=== PATIENT | female | born 1955 | race Caucasian/White ===

== ENCOUNTER → 2016-09-15 | Outpatient (CLI) | payer OTHER | END | disposition home or self-care (01) | LOC: GMAB 10:17 | PROVIDERS: ATTEND Family Medicine | DX: Z00.00 Encounter for general adult medical examination without abnormal findings (principal) ==

== ENCOUNTER 2017-07-02 23:44 | Emergency (ER) | payer OTHER, MEDICARE ==
[2017-07-02] MEDS ORDERED: IPRATROPIUM/ALBUTEROL 3 ML VIAL NEB ONE ×2 (23:47→23:50)
[2017-07-02] MEDS ORDERED: SODIUM CHLORIDE 0.9% 1000ML 1,000 ML IVS ONE (23:50)
[2017-07-03] MEDS ORDERED: FOLIC ACID INJ 5 MG/ML VIAL IV ONE (00:12)
--- NOTE | 2017-07-03 00:28 | ED.PDOC ---
History of Present Illness - General Chief Complaint: General Stated Complaint: ETOH INTOXICATED Time Seen by Provider: 07/02/17 23:49 Source: EMS notes reviewed, family Exam Limitations: clinical condition - History of Present Illness Initial Comments: the patient is a 61-year-old female being brought in by EMS secondary to altered mental status. She had been drinking all day with her . She consumes somewhere between 15 and 20 beers. She does drink fairly regularly. No history of any recent illness. She does take immunosuppressants for her psoriasis. She has moved all extremities and she's been here. She clenches her eyes tightly when he tried to examine them. She closes her mouth tightly when he tried to examine her mouth. She does not respond purposefully or appropriately to verbal commands. She has not thrown up. Vital signs have been stable since her arrival. She is satting 95% on room airand breathing 20-28 times per minute. Blood pressures have been within normal limits. She is afebrile. She has had no recentsigns or symptoms of illness according to her . No history of any strokes. Timing/Duration: 1 hour Severity: severe Improving Factors: nothing Worsening Factors: nothing Allergies/Adverse Reactions: Allergies Codeine Adverse Reaction (Verified 07/03/17 00:10) Other arrhythmia Home Medications: Ambulatory Orders Folic Acid 1 tab PO BID 10/08/12 Furosemide [Lasix] 40 mg PO TIERRA-OTH-DAY 10/08/12 Rosuvastatin Calcium [Crestor] 10 mg PO AM 10/08/12 Spironolactone 25 mg PO AM 10/08/12 Losartan Potassium 100 mg PO DAILY #0 03/31/13 Multiple Vitamin [Multi-Vitamin] 1 tab PO DAILY #0 03/31/13 Sulfasalazine 2 tab PO BID #0 03/31/13 Ciclesonide (Nasal) [Omnaris] 50 mcg NA DAILY PRN 02/09/16 Cyclobenzaprine HCl [Flexeril] 10 mg PO TID PRN 02/09/16 Methotrexate Tab 12.5 mg PO MOWE 02/09/16 Potassium Chloride [Potassium Chloride ER] 20 meq PO BIDFD 02/09/16 Venlafaxine HCl [Effexor Xr] 150 mg PO DAILY 02/09/16 Amoxicillin & Pot Clavulanate [Augmentin Tab] 875 mg PO BID #20 tab 07/03/17 predniSONE [Prednisone] 20 mg PO DAILY #3 tab 07/03/17 Review of Systems - Review of Systems Review of Systems: 07/03/17 00:28 the patient is unable to give review of systems secondary to her clinical condition. Information below is gathered from the for the time period Prior to this afternoon. Past Medical History (General) - Patient Medical History Hx Seizures: No Hx Stroke: No Hx Asthma: No Hx of COPD: Yes Hx Cardiac Disorders: Yes - elevated cholesterol Hx Congestive Heart Failure: No Hx Pacemaker: No Hx Hypertension: Yes Hx Diabetes: No Hx Cancer: - skin cancers removed Hx MRSA: No - Vaccination History Hx Influenza Vaccination: No - 2013 Hx Pneumococcal Vaccination: Yes - 2013 - Social History Hx Tobacco Use: Yes Hx Chewing Tobacco Use: No Hx Alcohol Use: No Hx Substance Use: No Hx Depression: Yes Hx Physical Abuse: No Hx Emotional Abuse: No Family Medical History - Family History Mother Living Status: Age at (years of age): 83 Cause of : alzheimers Hx Family Hypertension: Yes Hx Family Diabetes: Yes Physical Exam - Physical Exam General Appearance: Lethargic, Other - the patient is moving her extremitiesminimally spontaneously. She does not appear to be in any significant distress. Eye Exam: right other - the patient rolls her eyes around pointlessly. Ears, Nose, Throat: normal ENT inspection, normal pharynx Neck: other - oving and that causes little resistance. I see no evidence of trauma about the head or neck. No crepitus. No evidence of any pain with movement of the neck. Respiratory: no accessory muscle use, other - the patient does have diffuse wheezes. She has mild decreased air movement bilaterally. Cardiovascular/Chest: normal peripheral pulses, no edema, other - regular rate and rhythm on athletic monitor with occasional PACs. Peripheral Pulses: radial,right: 2+, radial,left: 2+, dorsalis pedis,right: 2+, dorsalis pedis,left: 2+ Gastrointestinal/Abdominal: non tender, soft Rectal Exam: deferred Back Exam: normal inspection, no CVA tenderness Extremity: normal inspection, no pedal edema, other - the patient is not showing purposeful movements of her extremities. Neurologic: other - see above Skin Exam: normal color Progress - Progress Progress: 07/03/17 01:02 the patient is a 61-year-old female presenting to emergency room with altered mental status, nearly nonresponsive. The patient definitely has acute alcohol intoxication. She also has a mild COPD exacerbation and a left maxillary sinusitis. The patient thinks that she fell and hit her head. That may certainly be the cause of a 45 minute period of poor responsiveness from the patient. Immediately after the CT scan of the head was performed the patient became alert oriented and interactive again. She is complaining of head and neck pain. Head CT and cervical spine CT were done for this reason. both showed no evidence of any acute pathology. There are chronic findings. I see no bruising, swelling or defect from any apparent immediate trauma in these areas but she does report pain in these areas. no focal neurological deficits. She is receiving doses of thiamine and folate as well as IV fluids. The patient will be written for Augmentin for her sinusitis as well as for her COPD exacerbation. She will additionally be written for prednisone for 5 days for COPD exacerbation and for the pain from her myofascial strain from the fall. she needs to follow-up with her primary care doctor for the COPD exacerbation, the maxillary sinusitis, and the concussion. She needs to reduce her alcohol intake. eR warnings were given for any worsening. She did receive folic acid and thiamine here along with IV fluids. She is alert and oriented and appropriate at this time. 07/03/17 01:51 - Results/Orders Results/Orders: 07/02/17 23:49 Telemetry .CONTINUOUS URINE DRUG SCREEN, 7 ASSAY Stat 07/02/17 23:50 EKG STAT Chest,1 View [RAD] Stat 07/03/17 00:51 Flu A+B (PCR) [INFLUENZA A & B BY PCR] Stat 07/03/17 01:00 Cervical Spine [CT] Stat 07/03/17 09:00 Thiamine HCl Inj 100 mg IV DAILY Oxygen Daily 07/03/17 23:50 EKG STAT Laboratory Results - last 24 hr 07/02/17 07/02/17 07/02/17 23:30 23:30 23:30 WBC 5.2 RBC 4.04 L Hgb 14.2 Hct 41.2 MCV 102.0 H MCH 35.1 H MCHC 34.6 RDW 15.0 H Plt Count 207 MPV 8.8 Absolute Neuts (auto) 2.20 Absolute Lymphs (auto) 2.30 Absolute Monos (auto) 0.50 Absolute Eos (auto) 0.10 Absolute Basos (auto) 0.00 Neutrophils % 43.3 Lymphocytes % 44.2 Monocytes % 10.5 H Eosinophils % 1.8 Basophils % 0.2 Sodium 134 L Potassium 3.7 Chloride 100 L Carbon Dioxide 25 Anion Gap 12.7 BUN 13 Creatinine 0.57 L BUN/Creatinine Ratio 22.8 H Random Glucose 107 H Serum Osmolality 268.8 L Calcium 9.4 Total Bilirubin 0.6 AST 22 ALT 28 Alkaline Phosphatase 63 Creatine Kinase 117 CK-MB (CK-2) 3.7 CK-MB (CK-2) % Not Reportable Troponin I < 0.02 B-Natriuretic Peptide 13.7 Serum Total Protein 6.4 Albumin 4.2 Globulin 2.2 L Albumin/Globulin Ratio 1.9 Ethyl Alcohol 240.[address] H* CT scan of the head shows no evidence of any intracranial pathology. CT of the cervical spine shows no acute pathology. Chest x-ray shows no acute pathology. EKG shows normal sinus rhythm. Poor R-wave progression in anterior leads. No acute ST segment changes concerning for ischemia. Normal QT interval. Departure - Departure Clinical Impression: COPD with acute exacerbation, Right maxillary sinusitis Concussion Qualifiers: Encounter type: initial encounter Loss of consciousness presence/duration: with LOC of unspecified duration Qualified Code(s): S06.0X9A - Concussion with loss of consciousness of unspecified duration, initial encounter Alcohol intoxication Qualifiers: Complication of substance-induced condition: uncomplicated Qualified Code(s): F10.920 - Alcohol use, unspecified with intoxication, uncomplicated Fall at home Qualifiers: Encounter type: initial encounter Qualified Code(s): W19.XXXA - Unspecified fall, initial encounter Disposition: Discharge to Home or Self Care Condition: Fair Departure Forms: ED Discharge - Pt. Copy, Patient Portal Self Enrollment Instructions: DI for Concussion, Postconcussion Syndrome, DI for Chronic Obstructive Pulmonary Disease, DI for Sinusitis, DI for Alcohol Abuse and Alcoholism Diet: regular diet Activity: increase activity as tolerated Referrals: Mitch Esposito MD [Primary Care Provider] - 1-2 Weeks Prescriptions: Amoxicillin & Pot Clavulanate [Augmentin Tab] 875 mg PO BID #20 tab predniSONE [Prednisone] 20 mg PO DAILY #3 tab Home Medications: Ambulatory Orders Folic Acid 1 tab PO BID 10/08/12 Furosemide [Lasix] 40 mg PO TIERRA-OTH-DAY 10/08/12 Rosuvastatin Calcium [Crestor] 10 mg PO AM 10/08/12 Spironolactone 25 mg PO AM 10/08/12 Losartan Potassium 100 mg PO DAILY #0 03/31/13 Multiple Vitamin [Multi-Vitamin] 1 tab PO DAILY #0 03/31/13 Sulfasalazine 2 tab PO BID #0 03/31/13 Ciclesonide (Nasal) [Omnaris] 50 mcg NA DAILY PRN 02/09/16 Cyclobenzaprine HCl [Flexeril] 10 mg PO TID PRN 02/09/16 Methotrexate Tab 12.5 mg PO MOWE 02/09/16 Potassium Chloride [Potassium Chloride ER] 20 meq PO BIDFD 02/09/16 Venlafaxine HCl [Effexor Xr] 150 mg PO DAILY 02/09/16 Amoxicillin & Pot Clavulanate [Augmentin Tab] 875 mg PO BID #20 tab 07/03/17 predniSONE [Prednisone] 20 mg PO DAILY #3 tab 07/03/17 Additional Instructions: the patient is a 61-year-old female presenting to emergency room with altered mental status, nearly nonresponsive. The patient definitely has acute alcohol intoxication. She also has a mild COPD exacerbation and a left maxillary sinusitis. The patient thinks that she fell and hit her head. That may certainly be the cause of a 45 minute period of poor responsiveness from the patient. Immediately after the CT scan of the head was performed the patient became alert oriented and interactive again. She is complaining of head and neck pain. Head CT and cervical spine CT were done for this reason. both showed no evidence of any acute pathology. There are chronic findings. I see no bruising, swelling or defect from any apparent immediate trauma in these areas but she does report pain in these areas. no focal neurological deficits. She is receiving doses of thiamine and folate as well as IV fluids. The patient will be written for Augmentin for her sinusitis as well as for her COPD exacerbation. She will additionally be written for prednisone for 5 days for COPD exacerbation and for the pain from her myofascial strain from the fall. she needs to follow-up with her primary care doctor for the COPD exacerbation, the maxillary sinusitis, and the concussion. She needs to reduce her alcohol intake. eR warnings were given for any worsening. She did receive folic acid and thiamine here along with IV fluids. She is alert and oriented and appropriate at this time.
--- NOTE | 2017-07-03 00:45 | CT ---
EXAM: CT head without contrast. INDICATION: AMS. TECHNIQUE: Contiguous axial CT images of the brain. Intravenous contrast: Absent. DLP 773 mGy-cm. This exam was performed according to our departmental dose-optimization program, which includes automated exposure control, adjustment of the mA and/or kV according to patient size and/or use of iterative reconstruction technique. COMPARISON: None. FINDINGS: Beam hardening artifact and motion limits evaluation of the posterior fossa. Subcutaneous: Unremarkable. No acute intracranial hemorrhage. No midline shift. No mass effect. Ventricles: No hydrocephalus. Neal-white differentiation preserved. Paranasal sinuses/mastoid air cells: There is mucosal thickening of the left maxillary sinus Bones/orbits: Visualized portions are unremarkable. IMPRESSION: 1. No CT evidence of acute intracranial hemorrhage. Electronically signed by: Boyd Jeter MD 07/03/2017 12:44 AM [facility] Workstation: [id number]
[2017-07-03] MEDS ORDERED: THIAMINE HCL INJ 100 MG/ML VIAL ONE (00:47)
--- NOTE | 2017-07-03 01:23 | RAD ---
Examination: XR CHEST 1 VIEW dated 07/02/2017 11:50 PM FILM SOUND COORDINATOR History: wheezing. alcohol intoxication Comparison: 02/10/2016 Technique: Frontal view of the chest Findings: The lungs are clear bilaterally. No pneumothorax or pleural effusion. The cardiomediastinal silhouette is within normal limits. Impression: No acute findings. Electronically signed by: Estevan Lamb MD 07/03/2017 1:22 AM FILM SOUND COORDINATOR
--- NOTE | 2017-07-03 01:42 | CT ---
EXAM: CT cervical spine without contrast. INDICATION: Trauma. Neck pain. TECHNIQUE: Contiguous axial CT images of the cervical spine. Intravenous contrast: Absent. Reformats: MPRs created and utilized. DLP 370 mGy-cm. This exam was performed according to our departmental dose-optimization program, which includes automated exposure control, adjustment of the mA and/or kV according to patient size and/or use of iterative reconstruction technique. COMPARISON: None. FINDINGS: Alignment: Preserved. Fracture: No acute fracture or subluxation. Odontoid process: Intact. Prevertebral soft tissues: No edema. Spondylosis: There is multilevel spondylosis, most notably at C4-C5 and C6-C7 with disc space narrowing, endplate sclerosis and marginal osteophytes. There is multilevel facet arthropathy with moderate right-sided neural foraminal narrowing at C4-C5 and moderate left-sided neural foraminal narrowing at C3-C4, C4-C5 and C6-C7. Other: None. IMPRESSION: 1. No CT evidence of acute osseous injury of the cervical spine. Electronically signed by: Boyd Jeter MD 07/03/2017 1:41 AM [facility] Workstation: [employer]seeing Information
[2017-07-03] MEDS ORDERED: predniSONE 20 MG TAB PO ONE (01:57)
[2017-07-03 03:39] VITALS: BP 130/74; TEMP 96.2; O2SAT 95
[2017-07-03] MEDS ORDERED: THIAMINE HCL INJ 100 MG/ML VIAL IV SCH (09:00)
== END 2017-07-03 03:00 | disposition home or self-care (01) ==
LOC: ER 23:44
DX: F10.129 Alcohol abuse with intoxication, unspecified (principal); S06.0X9A Concussion with loss of consciousness of unspecified duration, initial encounter; J44.1 Chronic obstructive pulmonary disease with (acute) exacerbation; J32.0 Chronic maxillary sinusitis; M54.2 Cervicalgia; I10 Essential (primary) hypertension; F32.9 Major depressive disorder, single episode, unspecified; F17.200 Nicotine dependence, unspecified, uncomplicated; Z88.5 Allergy status to narcotic agent; Z79.899 Other long term (current) drug therapy; Z85.828 Personal history of other malignant neoplasm of skin; W19.XXXA Unspecified fall, initial encounter; Y92.009 Unspecified place in unspecified non-institutional (private) residence as the place of occurrence of the external cause
CPT/HCPCS: 36415; 70450; 71010; 72125; 80053; 80320; 82550; 82553; 83880; 84484; 85025; 87502; 93005; 94640; J3411; J7030; J7512; J7620

== ENCOUNTER 2017-11-05 14:48 | Inpatient (IN) | payer OTHER, MEDICARE ==
[2017-11-05] MEDS ORDERED: IPRATROPIUM/ALBUTEROL 3 ML VIAL NEB ONE (15:10)
--- NOTE | 2017-11-05 15:13 | ED.PDOC ---
History of Present Illness - General Chief Complaint: Respiratory Problem Time Seen by Provider: 11/05/17 15:03 Source: patient Exam Limitations: no limitations - History of Present Illness Timing/Duration: 1 week Severity: severe Activities at Onset: none Possible Cause: occasional episodes, allergen exposure Improving Factors: nothing Worsening Factors: movement Associated Symptoms: cough, fever, weakness Respiratory Risk Factors: pollen Allergies/Adverse Reactions: Allergies Codeine Adverse Reaction (Verified 07/03/17 00:10) Other arrhythmia Home Medications: Ambulatory Orders Folic Acid 1 tab PO BID 10/08/12 Furosemide [Lasix] 40 mg PO TIERRA-OTH-DAY 10/08/12 Rosuvastatin Calcium [Crestor] 10 mg PO AM 10/08/12 Spironolactone 25 mg PO AM 10/08/12 Losartan Potassium 100 mg PO DAILY #0 03/31/13 Multiple Vitamin [Multi-Vitamin] 1 tab PO DAILY #0 03/31/13 Sulfasalazine 2 tab PO BID #0 03/31/13 Ciclesonide (Nasal) [Omnaris] 50 mcg NA DAILY PRN 02/09/16 Cyclobenzaprine HCl [Flexeril] 10 mg PO TID PRN 02/09/16 Methotrexate Tab 12.5 mg PO MOWE 02/09/16 Potassium Chloride [Potassium Chloride ER] 20 meq PO BIDFD 02/09/16 Venlafaxine HCl [Effexor Xr] 150 mg PO DAILY 02/09/16 Amoxicillin & Pot Clavulanate [Augmentin Tab] 875 mg PO BID #20 tab 07/03/17 predniSONE [Prednisone] 20 mg PO DAILY #3 tab 07/03/17 Review of Systems - Review of Systems Constitutional: States: fever. Denies: chills EENTM: States: nose congestion. Denies: throat pain Respiratory: States: cough, short of breath, wheezing Cardiology: Denies: chest pain, edema, syncope Gastrointestinal/Abdominal: Denies: abdominal pain, nausea, vomiting Genitourinary: States: no symptoms reported Musculoskeletal: States: no symptoms reported Skin: States: no symptoms reported Neurological: States: no symptoms reported Endocrine: States: no symptoms reported Hematologic/Lymphatic: States: no symptoms reported Past Medical History (General) - Patient Medical History Hx Seizures: No Hx Stroke: No Hx Dementia: No Hx Asthma: No Hx of COPD: Yes Hx Cardiac Disorders: Yes - elevated cholesterol Hx Congestive Heart Failure: No Hx Pacemaker: No Hx Hypertension: Yes Hx Thyroid Disease: No Hx Diabetes: No Hx Gastroesophageal Reflux: No Hx Renal Disease: No Hx Cancer: - skin cancers removed Hx of HIV: No Hx Hepatitis C: No Hx MRSA: No Hx Other PMH: Yes - Rheumatoid athritis - Vaccination History Hx Tetanus, Diphtheria Vaccination: No Hx Influenza Vaccination: No - 2013 Hx Pneumococcal Vaccination: Yes - 2013 - Social History Hx Tobacco Use: Yes Hx Chewing Tobacco Use: No Hx Alcohol Use: No Hx Substance Use: No Hx Depression: Yes Hx Physical Abuse: No Hx Emotional Abuse: No Family Medical History - Family History Mother Living Status: Age at (years of age): 83 Cause of : alzheimers Hx Family Hypertension: Yes Hx Family Diabetes: Yes Physical Exam - Physical Exam General Appearance: Alert, Obvious distress Eyes, Ears, Nose, Throat Exam: PERRL/EOMI, pharynx normal Neck: non-tender, full range of motion, supple, normal inspection Respiratory: decreased breath sounds, rhonchi, wheezing, expiration Cardiovascular/Chest: normal peripheral pulses, regular rate, rhythm, no edema Gastrointestinal/Abdominal: normal bowel sounds, non tender, soft Rectal Exam: deferred Extremity: normal range of motion, normal inspection, no pedal edema Neurologic: no motor/sensory deficits, alert, normal mood/affect, oriented x 3 Skin Exam: normal color, warm/dry Lymphatic: no adenopathy Progress - EKG/XRAY/CT XRAY: chest - no infiltrates Departure - Departure Clinical Impression: COPD with acute exacerbation, Hypoxemia Disposition: Admit Patient Condition: Fair Departure Forms: ED Discharge - Pt. Copy, Patient Portal Self Enrollment Referrals: RAMU PETTY IV METALSMITH [Primary Care Provider] - 1-2 Weeks Home Medications: Ambulatory Orders Folic Acid 1 tab PO BID 10/08/12 Furosemide [Lasix] 40 mg PO TIERRA-OTH-DAY 10/08/12 Rosuvastatin Calcium [Crestor] 10 mg PO AM 10/08/12 Spironolactone 25 mg PO AM 10/08/12 Losartan Potassium 100 mg PO DAILY #0 03/31/13 Multiple Vitamin [Multi-Vitamin] 1 tab PO DAILY #0 03/31/13 Sulfasalazine 2 tab PO BID #0 03/31/13 Ciclesonide (Nasal) [Omnaris] 50 mcg NA DAILY PRN 02/09/16 Cyclobenzaprine HCl [Flexeril] 10 mg PO TID PRN 02/09/16 Methotrexate Tab 12.5 mg PO MOWE 02/09/16 Potassium Chloride [Potassium Chloride ER] 20 meq PO BIDFD 02/09/16 Venlafaxine HCl [Effexor Xr] 150 mg PO DAILY 02/09/16 Amoxicillin & Pot Clavulanate [Augmentin Tab] 875 mg PO BID #20 tab 07/03/17 predniSONE [Prednisone] 20 mg PO DAILY #3 tab 07/03/17
--- NOTE | 2017-11-05 15:25 | RAD ---
EXAM DESCRIPTION: Chest,1 View CLINICAL HISTORY: sob COMPARISON: 07/03/2017 FINDINGS: Cardiac silhouette is within normal limits. There is no focal parenchymal or pleural disease. Visualized osseous structures are within normal limits. IMPRESSION: No evidence of acute cardiopulmonary disease. Electronically signed by: Sandoval Jacobs 11/05/2017 3:23 PM CDT
[2017-11-05] MEDS ORDERED: SODIUM CHL 0.9% 50ML VIAL 12 ML, ALBUTEROL SULFATE NEBS 7.5 MG NEB ONE ×2 (15:52)
[2017-11-05] MEDS ORDERED: methylPREDNISolone SODIUM SUC 125 MG/2 ML VIAL IM ONE (15:55)
[2017-11-05] MEDS ORDERED: ALBUTEROL SULFATE 2.5 MG/3 ML VIAL NEB ONE (15:56)
[2017-11-05] MEDS ORDERED: SODIUM CHLORIDE 0.9% 50 ML VIAL NEB ONE (16:36)
--- NOTE | 2017-11-05 17:38 | HP ---
SUPERVISING PHYSICIAN: Tej Aviles M.D. CHIEF COMPLAINT: Shortness of breath and cough. HISTORY OF PRESENT ILLNESS: Ms. Pavon is a 62 year-old female patient that presented to the Emergency Department today for worsening shortness of breath. She does have a history of chronic obstructive pulmonary disease and is a current pack a day smoker. She notes that she was with a friend at a doctor's office a week ago and since that point has started coughing. It has progressively worsened to productive sputum as well as subjective fever and worsening shortness of breath. In the Emergency Room she was tachypneic with a low-grade fever of 99.2 and satting 90% on nasal cannula at rest. Arterial blood gases were completed on room air showing that she had an O2 saturation of 89% with a methemoglobin of 2.2 and carboxyhemoglobin of 0.4 with a PaO2 of 52, PCO2 of 43 and pH of 7.39 with bicarb 25.3 and base excess of 0.7. She was given a continuous DuoNeb treatment due to the fact that she was in mild respiratory distress with some prominent inspiratory and expiratory wheezing. The extended albuterol treatment did result in some improvement in her presentation and supplemental oxygen as well resulting in saturations in the mid 90s. Chest x-ray per radiology interpretation showed no acute findings initially on a portable film. She does have a history of rheumatoid arthritis and is on multiple medications, including Methotrexate, Enbrel and Otezla. Her white count in the E. R. showed a mild leukocytosis of 11,600 with a left shift. Given the patient's symptomology and significant respiratory effort requiring supplemental oxygenation and multiple breathing treatments with minimal improvement, the patient is now going to be admitted to the Medical/Surgical floor for acute exacerbation of COPD with concerns for community acquired pneumonia in a patient that is considered immunocompetent due to her home medications. She was admitted in stable condition. PAST MEDICAL HISTORY: 1. Rheumatoid arthritis. 2. Chronic obstructive pulmonary disease. 3. Hypertension. 4. Chronic tobacco abuse. CURRENT MEDICATIONS: 1 Effexor 150 mg daily. 2. Sulfasalazine 2 mg b.i.d. 3. Spironolactone 25 mg daily. 4. Crestor 10 mg daily. 5. Potassium chloride extended release 20 mEq twice daily. 6. Methotrexate 15 mg monthly. 7. Losartan 100 mg daily. 8. Lasix 40 mg every other day. 9. Folic acid 1 tablet b.i.d. 10. Flexeril 10 mg b.i.d. as needed. 11. Low dose aspirin 81 mg. 12. Enbrel. 13. Otezla. ALLERGIES: CODEINE. FAMILY HISTORY: Positive for coronary artery disease and diabetes mellitus. 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 She is , lives in [place]. She currently smokes 1 pack a day and has for well over 40 years. She drinks alcohol on a social basis, mainly beer. She denies any illicit drug use. REVIEW OF SYSTEMS: CONSTITUTIONAL: Positive for chills, subjective fever, general malaise. HEENT: Positive for nasal congestion but denies any sore throat, ear aches. RESPIRATORY : As noted in History of Present Illness, worsening cough with shortness of breath, wheezing. CARDIOVASCULAR: Denies any chest pains, edema or syncopal episodes, palpitations. GASTROINTESTINAL: Denies any abdominal pain, nausea, vomiting, constipation or diarrhea. GENITOURINARY: Denies any dysuria, hematuria or other urinary symptoms. MUSCULOSKELETAL: History of rheumatoid arthritis. NEUROLOGIC: Denies any ataxia, seizures, syncopal episodes, vision changes or other neurological symptoms. PHYSICAL EXAMINATION: VITAL SIGNS: Temperature 99.2, pulse 118, blood pressure 150/90 with respirations 24, satting 89% on room air at rest. Admission weight 73.4 kg. GENERAL: The patient on exam on the Medical/Surgical floor shows to be anxious but in no acute distress. She is alert. HEENT: Tympanic membranes are clear bilaterally. Oropharynx was pink and moist without any lesions. NECK: Supple, non-tender with full range of motion. No jugular venous distention. CHEST: Significantly decreased breath sounds throughout with some obvious wheezing, mild rhonchi heard in the left lower lateral aspect and diminished on the right. CARDIOVASCULAR: Heart was regular rate and rhythm without appreciable murmurs, gallops, or rubs. ABDOMEN: Soft, non-tender. Positive bowel sounds. EXTREMITIES: No clubbing, cyanosis or edema. NEUROLOGIC: She was alert and oriented times three. Cranial nerves II-XII are grossly intact. Facial features were symmetrical. Extraocular movements are within normal limits. There is no notable nystagmus. LABORATORY: CBC showed leukocytosis of 11,600 with hemoglobin 13.9, hematocrit 41.6 with RBC indices showing a macrocytic hyperchromic presentation with a platelet count of 272,000. Differential did show a left shift. Blood gas analysis showed a pH of 7.39 with PCO2 of 43, PO2 of 52, bicarb 25.3 and base excess of 0.7 with a methemoglobin of 2.2 on room air. Chemistries showed normal electrolytes with potassium 3.6, BUN 16, creatinine 0.63. Blood sugar was 133, lactic acid 2.0, calcium 9.9, magnesium 2.0. Liver functions are within normal limits. MICROBIOLOGY: Blood cultures are pending. Sputum culture is pending. RADIOLOGY: Portable chest film in the E. R. per radiology interpretation showed no evidence of acute cardiopulmonary disease. ASSESSMENT: 1. Acute exacerbation of chronic obstructive pulmonary disease with hypoxemia as noted on arterial blood gas with concerns for early pneumonia community acquired in a patient immunocompromised due to chronic medications for rheumatoid arthritis on multiple disease modifying antirheumatic drugs with initiation of aggressive pulmonary hygiene and corticosteroid administration. 2. Leukocytosis secondary to #1 with concerns for early pneumonia community acquired requiring initiation of antibiotic therapy with azithromycin and Rocephin. 3. History of rheumatoid arthritis on multiple immune modulating medications. 4. Hypertension. 5. Chronic tobacco abuse, encouraged to stop smoking. 6. Depressed and anxiety. PLAN: The patient is to be admitted to the Medical/Surgical floor for initiation of treatment for acute exacerbation of chronic obstructive pulmonary disease and possible community acquired pneumonia. She was given multiple breathing treatments, including a 7.5 mg continuous treatment before being admitted to the Medical/Surgical floor. Will continue with aggressive pulmonary hygiene, including q.i.d. DuoNeb treatments and chest percussion therapy. Will start on Mucinex and continued corticosteroids. She was given an initial 125 mg of Solu-Medrol IM in the E. R. This will be continued with 80 mg every 6 hours for at least 4 doses. She will be on DVT prophylaxis as per protocol. She will have her home medications resumed once they have been updated and verified and as appropriate. Will await a sputum culture and repeat a chest x-ray in the morning to include a two view to further assess for developing pneumonia. Will anticipate her length of stay to be at least 2 to 3 days. I have also given her magnesium 2 grams in efforts to help with her respiratory efforts. She is quite anxious and I have given her p.r.n. Xanax as needed for anxiety as well as Benadryl for sleep at night. Will reevaluate clinically in the morning. Until clinically stable, will continue to monitor and treat appropriately until discharge. Once discharged she will need close clinical followup with her primary care provider who is Fernando Goff, Nurse Practitioner. #[id number] MTDD
[2017-11-05] MEDS ORDERED: ACETAMINOPHEN 325 MG TAB PO PRN (18:21)
[2017-11-05] MEDS ORDERED: ALBUTEROL SULFATE 2.5 MG/3 ML VIAL NEB PRN (18:21)
[2017-11-05] MEDS ORDERED: MAGNESIUM SULFATE PREMIX 2GM 2 GM in PREMIX BAG 1 BAG IVPB ONE (18:27)
[2017-11-05] MEDS ORDERED: KCL 20MEQ/0.45% NS 1,000 ML IVS PRN (18:29)
[2017-11-05] MEDS ORDERED: IV SET AND CAP CHANGE INJ INJ SCH (18:30)
--- NOTE | 2017-11-05 18:34 | PCM.CORE ---
Physician DVT/VTE - Nurse DVT Assessment & Total Each Risk Factor Represents 2 Points: Age 60-74 Each Risk Factor Represents 1 Point: Medical PT at Bed Rest Each Risk Factor is 1 Point: Serious Lung disease (pnemonia <1month, COPD, emphysema,etc) DVT Assessment Score: 4 - 3-4 High Risk Treatments: Early Ambulation *, Sequential Compression Device Pharmacological: Enoxaparin 40 mg SQ Daily
[2017-11-05] MEDS ORDERED: KCL 20 MEQ/NS 0 ML IVS ONE (18:39)
[2017-11-05] MEDS ORDERED: MAGNESIUM SULFATE PREMIX 2GM 50 ML IVPB ONE (18:39)
[2017-11-05] MEDS ORDERED: ALPRAZolam 0.25 MG TAB PO PRN (19:24)
[2017-11-05] MEDS ORDERED: KETOROLAC TROMETHAMINE INJ 30 MG/ML VIAL IV ONE (19:26)
[2017-11-05] MEDS ORDERED: CYCLOBENZAPRINE HCL 10 MG TAB PO PRN (19:27)
[2017-11-05] MEDS ORDERED: AZITHROMYCIN IV 500 MG in SODIUM CHLORIDE 0.9% 250ML 250 ML IVPB SCH (19:30)
[2017-11-05] MEDS ORDERED: SODIUM CHLORIDE 0.9% 250ML 250 ML ONE (19:45)
[2017-11-05] MEDS ORDERED: cefTRIAXone SODIUM 1 GM VIAL ONE (19:45)
[2017-11-05] MEDS ORDERED: SODIUM CHL 0.9% 50ML MIN-BAG+ 50 ML IVPB ONE (19:45)
[2017-11-05] MEDS ORDERED: AZITHROMYCIN IV 500 MG VIAL IVPB ONE (19:46)
[2017-11-05] MEDS ORDERED: IPRATROPIUM/ALBUTEROL 3 ML VIAL INH SCH (20:00)
[2017-11-05] MEDS: cefTRIAXone SODIUM 1 GM in SODIUM CHL 0.9% 50ML MIN-BAG+ 50 ML IVPB SCH (20:00)
[2017-11-05] MEDS: SODIUM CHLORIDE 0.9% (FLUSH) 10 ML SYG IV PRN (20:05)
[2017-11-05] MEDS: diphenhydrAMINE HCL 25 MG CAP PO PRN (20:43)
[2017-11-05] MEDS: guaiFENesin ER TAB 600 MG TAB PO SCH (20:43)
[2017-11-05] MEDS: ENOXAPARIN SODIUM 40 MG/0.4 ML SYG SUBCU SCH (20:43)
[2017-11-06] MEDS: SODIUM CHLORIDE 0.9% (FLUSH) 10 ML SYG IV PRN ×2 (00:03→06:16)
[2017-11-06] MEDS: methylPREDNISolone SODIUM SUC 125 MG/2 ML VIAL IV SCH ×5 (00:03→17:01)
[2017-11-06] MEDS: PANTOPRAZOLE SODIUM IV 40 MG VIAL IV SCH (06:16)
[2017-11-06] MEDS ORDERED: SODIUM CHL 0.9% 50ML MIN-BAG+ 50 ML IVPB ONE ×2 (07:10→19:57)
[2017-11-06] MEDS ORDERED: POTASSIUM CHLORIDE 20 MEQ TAB ONE (07:10)
[2017-11-06] MEDS ORDERED: cefTRIAXone SODIUM 1 GM VIAL ONE ×2 (07:11→19:57)
[2017-11-06] MEDS: cefTRIAXone SODIUM 1 GM in SODIUM CHL 0.9% 50ML MIN-BAG+ 50 ML IVPB SCH ×2 (07:30→20:16)
[2017-11-06] MEDS: POTASSIUM CHLORIDE 20 MEQ TAB PO SCH ×2 (07:51→17:01)
[2017-11-06] MEDS ORDERED: SPIRONOLACTONE 25 MG TAB ONE (07:54)
[2017-11-06] MEDS ORDERED: VENLAFAXINE XR 75 MG CAP ONE (07:54)
[2017-11-06] MEDS: IPRATROPIUM/ALBUTEROL 3 ML VIAL NEB SCH ×4 (08:00→19:52)
[2017-11-06] MEDS ORDERED: KCL 20MEQ/0.45% NS 1,000 ML IVS PRN (08:00)
[2017-11-06] MEDS: guaiFENesin ER TAB 600 MG TAB PO SCH ×2 (08:09→20:51)
[2017-11-06] MEDS: SPIRONOLACTONE 25 MG TAB PO SCH (08:09)
[2017-11-06] MEDS: LOSARTAN POTASSIUM 100 MG TAB PO SCH (08:09)
[2017-11-06] MEDS: VENLAFAXINE XR 75 MG CAP PO SCH (08:09)
[2017-11-06] MEDS: ASPIRIN EC 81 MG TAB PO SCH (08:09)
--- NOTE | 2017-11-06 08:20 | RAD ---
PROCEDURE: Chest,2 Views CLINICAL HISTORY: Pneumonia INDICATION: Same as above COMPARISON: 11/05/2017 TECHNIQUE: PA and and lateral chest radiographs were obtained. FINDINGS: There are changes of COPD There are no discrete airspace infiltrates, pneumothoraces or pleural effusions. The pulmonary vascularity is normal The cardiomediastinal silhouette is unremarkable for patient's age and sex. IMPRESSION: There is no acute pleural-parenchymal process seen in the imaged lung ash. There are changes of COPD Electronically signed by: Arturo Barrios MD 11/06/2017 8:19 AM CDT Workstation: [id number]
[2017-11-06] MEDS: sulfaSALAzine DELAYED RELEASE 500 MG TAB PO SCH ×3 (10:00→20:51)
[2017-11-06] MEDS: FOLIC ACID 1 MG TAB PO SCH ×3 (10:00→20:51)
[2017-11-06] MEDS ORDERED: SODIUM CHLORIDE 0.65% NASAL SPRAY 45 ML BTTL BNAS PRN (10:19)
[2017-11-06] MEDS ORDERED: sulfaSALAzine TAB 500 MG TAB ONE ×2 (11:35→11:38)
--- NOTE | 2017-11-06 18:15 | PN ---
DATE: 11/06/17 SUPERVISING PHYSICIAN: Tej Aviles M.D. SUBJECTIVE: The patient is resting comfortably this morning. She feels like she is breathing much easier. She was able to rest through the night. She remains afebrile. OBJECTIVE: VITAL SIGNS: Temperature 7.6, pulse 93, blood pressure 146/78, respirations 24, satting 99% on 2 liters nasal cannula. I's and O's show a positive balance of 122 with 1122 in,1000 out. Weight 74.8 kg. CHEST: Still diminished throughout but much improved in aeration compared to yesterday. Still has very faint expiratory wheezing noted but no rhonchi or rales. HEART: Regular rate and rhythm. ABDOMEN: Obese but soft, non-tender with positive bowel sounds. EXTREMITIES: No clubbing, cyanosis or edema. NEUROLOGIC: She is alert and oriented times three. LABORATORY: White count now is down to 10,100, hemoglobin 12.5, hematocrit 37.5 , platelet count 251,000. Differential continues to show a left shift. Chemistries show normal electrolytes with potassium 4.8, BUN 15, creatinine 0.5 with glucose 221, calcium 9.5. MICROBIOLOGY: She had a positive sputum culture with preliminary result of gram positive cocci. Blood cultures remain negative. RADIOLOGY: Repeat chest x-ray today of 2 view chest per radiology interpretation shows no acute pleural or parenchymal processes seen in the imaged lung ash. There are changes of COPD. ASSESSMENT: 1. Acute exacerbation of chronic obstructive pulmonary disease requiring aggressive pulmonary hygiene and corticosteroid administration with the patient having a significant hypoxemia on admission showing some slow clinical improvement. Sputum culture preliminary shows gram positive cocci again with concerns for early pneumonia community acquired. 2. Leukocytosis secondary to #1 with concerns for early pneumonia community acquired, now normalized with the patient continuing to be on antibiotic therapy of azithromycin and Rocephin as well as corticosteroids. 3. History of rheumatoid arthritis on multiple immune modulating medications. 4. Hypertension. 5. Chronic tobacco abuse, encouraged to stop smoking. 6. Depression and anxiety. PLAN: Will continue with aggressive pulmonary hygiene at this point and current regimen for antibiotics to include Rocephin and azithromycin pending final culture results of the sputum which did show preliminary of gram positive cocci. She is responding well to the chest percussive therapy as well as corticosteroids which will continue at current dosage for another 12 hours and then will decrease to 60 mg for at least 2 doses with anticipation of discharging later tomorrow or Tuesday and transition her to p.o. prednisone. Will repeat laboratory studies in the morning as well as follow closer, reevaluate clinically. Until stable and able to tolerate oral prednisone, will continue to monitor and treat appropriately. [facility][id number] [facility]
[2017-11-06] MEDS ORDERED: SODIUM CHLORIDE 0.9% 250ML 250 ML ONE (19:56)
[2017-11-06] MEDS ORDERED: AZITHROMYCIN IV 500 MG VIAL IVPB ONE (19:58)
[2017-11-06] MEDS ORDERED: AZITHROMYCIN IV 500 MG in SODIUM CHLORIDE 0.9% 250ML 250 ML IVPB SCH (20:30)
[2017-11-06] MEDS: diphenhydrAMINE HCL 25 MG CAP PO PRN (20:51)
[2017-11-06] MEDS: ENOXAPARIN SODIUM 40 MG/0.4 ML SYG SUBCU SCH (20:51)
[2017-11-06] MEDS ORDERED: SIMVASTATIN 20 MG TAB PO SCH (21:00)
[2017-11-06] MEDS: APREMILAST 30 MG PO SCH (21:25)
[2017-11-07] MEDS: methylPREDNISolone SODIUM SUC 125 MG/2 ML VIAL IV SCH ×3 (00:19→11:37)
[2017-11-07] MEDS: SODIUM CHLORIDE 0.9% (FLUSH) 10 ML SYG IV PRN ×2 (00:19→05:54)
[2017-11-07] MEDS: PANTOPRAZOLE SODIUM IV 40 MG VIAL IV SCH (06:00)
[2017-11-07] MEDS ORDERED: FUROSEMIDE 40 MG TAB ONE (06:52)
[2017-11-07] MEDS ORDERED: SODIUM CHL 0.9% 50ML MIN-BAG+ 0 ML IVPB ONE (06:52)
[2017-11-07] MEDS ORDERED: cefTRIAXone SODIUM 1 GM VIAL ONE ×2 (06:53→07:12)
[2017-11-07] MEDS ORDERED: SODIUM CHL 0.9% 50ML MIN-BAG+ 50 ML IVPB ONE (07:12)
[2017-11-07] MEDS: POTASSIUM CHLORIDE 20 MEQ TAB PO SCH (07:28)
[2017-11-07] MEDS: cefTRIAXone SODIUM 1 GM in SODIUM CHL 0.9% 50ML MIN-BAG+ 50 ML IVPB SCH (07:31)
[2017-11-07] MEDS: IPRATROPIUM/ALBUTEROL 3 ML VIAL NEB SCH (08:29)
[2017-11-07] MEDS: APREMILAST 30 MG PO SCH (08:35)
[2017-11-07] MEDS: sulfaSALAzine DELAYED RELEASE 500 MG TAB PO SCH (08:36)
[2017-11-07] MEDS: SPIRONOLACTONE 25 MG TAB PO SCH (08:36)
[2017-11-07] MEDS: ASPIRIN EC 81 MG TAB PO SCH (08:36)
[2017-11-07] MEDS: FOLIC ACID 1 MG TAB PO SCH (08:37)
[2017-11-07] MEDS: VENLAFAXINE XR 75 MG CAP PO SCH (08:37)
[2017-11-07] MEDS: LOSARTAN POTASSIUM 100 MG TAB PO SCH (08:37)
[2017-11-07] MEDS: guaiFENesin ER TAB 600 MG TAB PO SCH (08:38)
[2017-11-07] MEDS ORDERED: METHOTREXATE 15 MG PO SCH (09:00)
[2017-11-07] MEDS ORDERED: FUROSEMIDE 40 MG TAB PO SCH (09:00)
[2017-11-07 09:49] VITALS: BP 160/83; TEMP 98; O2SAT 95
[2017-11-07] MEDS ORDERED: AZITHROMYCIN 250 MG TAB PO SCH (20:00)
[2017-11-08] MEDS ORDERED: PANTOPRAZOLE SODIUM TAB 40 MG PO SCH (06:30)
--- NOTE | 2017-11-14 09:59 | DS ---
SUPERVISING PHYSICIAN: Kike Vincent MD DISCHARGE DIAGNOSIS: 1. Acute exacerbation of chronic obstructive pulmonary disease with community acquired pneumonia secondary to Streptococcal pneumoniae as noted on sputum cultures with the patient showing good clinical improvement with antibiotic therapy. 2. Persistent leukocytosis secondary to #1 with concerns for pneumonia community acquired, exacerbated by her aggressive management with high dose corticosteroids with the patient clinically improving. 3. History of rheumatoid arthritis on multiple immune modulating medications, resulting in immunocompromised immune system. 4. Hypertension. 5. Chronic tobacco abuse, encouraged to stop smoking. 6. Depression and anxiety. REASON FOR HOSPITALIZATION: Ms. Pavon is a 62 year-old female patient that presented to the Emergency Department on 11/05/17 for worsening shortness of breath. She does have a history of chronic obstructive pulmonary disease and is a current pack a day smoker. She noted that she was with a friend at a doctor's office in the past week and since that point has started coughing. It has progressively worsened to productive sputum as well as subjective fever and worsening shortness of breath. In the Emergency Room she was tachypneic with a low-grade fever of 99.2 and satting 90% on nasal cannula at rest. Arterial blood gases were completed on room air showing that she had an O2 saturation of 89% with a PaO2 of 52, PCO2 of 43. She was given a continuous DuoNeb treatment due to the fact that she was in mild respiratory distress with some prominent inspiratory and expiratory wheezing. The extended albuterol treatment did result in some improvement in her presentation and supplemental oxygen as well resulting in saturations in the mid 90s. Chest x- ray per radiology interpretation showed no acute findings initially on a portable film. She does have a history of rheumatoid arthritis and is on multiple medications, including methotrexate, Enbrel and Otezla. Her white count in the Emergency Room showed a mild leukocytosis of 11,600 with a left shift. Given the patient's symptomatology and significant respiratory effort requiring supplemental oxygenation and multiple breathing treatments with minimal improvement, the patient was now going to be admitted to the Medical/ Surgical floor for acute exacerbation of COPD with concerns for community acquired pneumonia in a patient that is considered immunocompetent due to her home medications for treatment of rheumatoid arthritis. She was admitted in stable condition. LABORATORY: CBC on admission showed white count 11,600. At discharge, white count was 7,600, however, the patient had been on high dose corticosteroid and was clinically improving. Hemoglobin at discharge was 11.6, hematocrit 35.3, platelet count 283,000. Blood gas analysis initially on admission showed PO2 52 , otherwise indices were within normal limits. Saturation 89% on nasal cannula at rest with oxyhemoglobin of 87. Chemistries showed normal electrolytes both on admission and prior discharge with BUN at discharge of 13, creatinine 0.49. Glucoses were stable, at discharge 158. Lactic acid normal at 2.0. Calcium normal at 9.5. Liver functions all within normal limits. BNP normal at 13.5. MICROBIOLOGY: Sputum culture showed a Streptococcus pneumoniae that was sensitive to all but erythromycin and benzylpenicillin. RADIOLOGY: Chest x-ray initially in the Emergency Room per radiologic interpretation showed no evidence of acute cardiopulmonary disease. Additional chest x-rays were completed and, again, per radiologic interpretation there were no acute pulmonary parenchymal processes noted on image ash. There were changes noted of chronic obstructive pulmonary disease. HOSPITAL COURSE: Ms. Pavon was admitted as noted above with acute exacerbation of chronic obstructive pulmonary disease with identified Streptococcal pneumoniae resulting in some pneumonia and severe dyspnea requiring aggressive medication management including aggressive corticosteroid administration along with DuoNeb treatments and chest percussion therapy. The patient was initially given a dose of 125 mg which was followed with tapering dose. She was discharged on 40 mg p.o. prednisone. She was started on IV antibiotics to include Rocephin and azithromycin and showed good response to treatment. She was started on Protonix for gastric protection given the high dose steroid. She showed good improvement, although slow through hospitalization. On the day of discharge, she was showing clinical improvement well enough to continue with outpatient treatment plan. PLAN: Ms. Pavon was discharged on 11/07/17 with instructions to followup with Fernando Goff NP, her primary care provider. She was to resume home medications as previous to admission and take all new medications that were prescribed as directed. She was encouraged to stop smoking and return to the hospital for any concerning symptoms. Diet at was as tolerated regular diet. Increase activity as tolerated. She was to utilize her oxygen as instructed and again encouraged to stop smoking. Medications prescribed at discharge included: 1. Proventil nebulizer 2.5 mg per 3 mL q4h and p.r.n. as needed, #30. 2. Azithromycin 500 mg for 3 additional days. 3. Cefdinir 300 mg twice daily, #20. 4. Guaifenesin 600 mg twice daily. 5. Medrol Dosepak 4 mg, #21. Condition on discharge was stable and improved. #[id number] MTDD
== END 2017-11-07 11:55 | disposition home or self-care (01) | DRG 190 ==
LOC: ER 14:48 → MS 17:36
PROVIDERS: ADMIT Nurse Practitioner Family; ATTEND Nurse Practitioner Family
DX: J44.1 Chronic obstructive pulmonary disease with (acute) exacerbation (principal); J13 Pneumonia due to Streptococcus pneumoniae; F17.210 Nicotine dependence, cigarettes, uncomplicated; M06.9 Rheumatoid arthritis, unspecified; I10 Essential (primary) hypertension; F41.9 Anxiety disorder, unspecified; F32.9 Major depressive disorder, single episode, unspecified; R09.02 Hypoxemia; Z79.899 Other long term (current) drug therapy

== ENCOUNTER → 2018-05-17 | Outpatient (CLI) | payer OTHER ==
--- NOTE | 2018-05-19 09:56 | MAM ---
EXAM DESCRIPTION: 3D Screening BILATERAL : Digital Mammography. CLINICAL HISTORY: 62 years Female SCREENING . No complaints. No personal or family history of breast cancer. Childbirth. Postmenopausal. Taking HRT 5 or more years ago.. Lifetime risk of developing breast cancer (Tyrer-Cuzick model)(%): 7.7. COMPARISON: 2-D bilateral screening digital mammography 12/19/2013. TECHNIQUE: Bilateral CC and MLO projection full-field images, digital tomosynthesis mammographic technique. Bilateral digital 2-D full-field MLO images. CAD not available for tomosynthesis or 2-D images. FINDINGS: The breast parenchymal density pattern is: Scattered areas of fibroglandular density. No skin thickening or nipple retraction. Bilateral solitary microcalcifications scattered through the dense tissue. Bilateral axillary lymph nodes. Benign type calcifications have increased in number slightly the prior study No new focal, stellate mass or density, focal asymmetry , and no suspicious microcalcifications bilaterally. IMPRESSION: Benign exam. BIRAD CATEGORY: 2 BENIGN FINDINGS. RECOMMENDATIONS: FOLLOW UP: Routine digital bilateral mammographic screening, one year interval from May 2018. Written communication explaining the IMPRESSION and follow-up, will be mailed to the patient and referring health care provider. According to the [employer], yearly mammograms are recommended starting at age 40 and continuing as long as a woman is in good health. Any breast change noted on a breast self-exam should be reported promptly to the patient's healthcare provider. Breast MRI is recommended for women with an approximately 20-25% or greater lifetime risk of breast cancer, including women with a strong family history of breast or ovarian cancer and women who have been treated for Hodgkin's disease. A negative mammographic report should not delay tissue diagnosis in patients with significant clinical history or physical findings. Extremely dense breast tissue limits the sensitivity of digital mammography. Electronically signed by: Sandoval Ruiz MD 05/19/2018 9:54 AM [employer]
== END ==
LOC: MAMMO 10:30
PROVIDERS: ATTEND Nurse Practitioner Family
DX: Z12.31 Encounter for screening mammogram for malignant neoplasm of breast (principal)

== ENCOUNTER 2019-01-22 05:36 | Day surgery (SDC) | payer OTHER ==
[2019-01-22] MEDS ORDERED: MOXIFLOXACIN HCL (OPHTH) 1 DROP DROPS ONE (05:52)
[2019-01-22] MEDS ORDERED: PROPARACAINE 0.5% OPHTH SOL 15 ML BTTL ONE (05:53)
[2019-01-22] MEDS ORDERED: TROP 1%/CYCLOPEN 1%/PHENYL 2% DROPS ONE (05:54)
== END 2019-01-22 07:35 | disposition home or self-care (01) ==
LOC: AMB 05:36
PROVIDERS: ATTEND Ophthalmology
DX: H26.491 Other secondary cataract, right eye (principal); I10 Essential (primary) hypertension; Z88.5 Allergy status to narcotic agent

== ENCOUNTER 2019-02-05 05:39 | Day surgery (SDC) | payer OTHER ==
[2019-02-05] MEDS ORDERED: TROP 1%/CYCLOPEN 1%/PHENYL 2% DROPS ONE (07:00)
[2019-02-05] MEDS ORDERED: TOBRAMYCIN SULF 0.3 % OPHT SOL 1 DROP ONE (07:00)
[2019-02-05] MEDS ORDERED: PROPARACAINE 0.5% OPHTH SOL 15 ML BTTL ONE (07:00)
== END 2019-02-05 07:22 | disposition home or self-care (01) ==
LOC: AMB 05:39
PROVIDERS: ATTEND Ophthalmology
DX: H26.492 Other secondary cataract, left eye (principal); I10 Essential (primary) hypertension; Z88.5 Allergy status to narcotic agent

== ENCOUNTER 2019-03-31 01:25 | Emergency (ER) | payer OTHER ==
--- NOTE | 2019-03-31 01:55 | ED.PDOC ---
History of Present Illness - General Chief Complaint: General Stated Complaint: feeling hot and pain up her leg Time Seen by Provider: 03/31/19 01:44 - History of Present Illness Initial Comments: this is a patient smoker, with hx of rheumatoid arthritis patient presents because at 12am while she was sleeping she had a burning sensation that started in her lower extremity and the migrated toward the entire left side of her body. patient got concern because she thought that she was having a stroke. patient is ambulatory and does not appear in any distress and was able to ambulate with a steady gait Allergies/Adverse Reactions: Allergies Codeine Adverse Reaction (Verified 11/05/17 18:19) Other arrhythmia Home Medications: Ambulatory Orders Folic Acid 1 tab PO BID 10/08/12 Furosemide [Lasix] 40 mg PO TIERRA-OTH-DAY 10/08/12 Rosuvastatin Calcium [Crestor] 10 mg PO AM 10/08/12 Spironolactone 25 mg PO AM 10/08/12 Losartan Potassium 100 mg PO DAILY #0 03/31/13 Sulfasalazine 2 tab PO BID #0 03/31/13 Cyclobenzaprine HCl [Flexeril] 10 mg PO TID PRN 02/09/16 Methotrexate Tab 15 mg PO MOTH 02/09/16 Potassium Chloride [Potassium Chloride ER] 20 meq PO BIDFD 02/09/16 Venlafaxine HCl [Effexor Xr] 150 mg PO DAILY 02/09/16 Aspirin [Brody Low Dose] 81 mg PO DAILY 11/05/17 Apremilast [Otezla] 30 mg PO BID 11/06/17 Etanercept [Enbrel] 25 mg SC WKLY 11/06/17 Albuterol Sulfate Nebs [Proventil Nebs] 2.5 mg INH Q4HR #30 vial 11/07/17 Methylprednisolone [Medrol Dose Idris] 4 mg PO DAILY 6 Days #21 tab 11/07/17 guaiFENesin ER TAB [Mucinex Tab] 600 mg PO BID tab 11/07/17 Review of Systems - Review of Systems Constitutional: States: no symptoms reported. Denies: chills, diaphoresis, fever, malaise, weakness EENTM: States: no symptoms reported. Denies: eye pain, blurred vision, tearing, double vision, ear pain, ear discharge, nose pain, nose congestion, throat pain, throat swelling, mouth pain, mouth swelling Respiratory: States: no symptoms reported. Denies: see HPI, orthopnea, wheezing Cardiology: States: no symptoms reported. Denies: chest pain, edema, palpitations, syncope Gastrointestinal/Abdominal: States: no symptoms reported. Denies: abdominal pain, constipation, diarrhea, nausea, vomiting Genitourinary: States: no symptoms reported. Denies: discharge, dysuria, frequency, hematuria, pain Musculoskeletal: States: no symptoms reported. Denies: back pain, gout, joint pain, joint swelling, muscle pain, muscle stiffness, neck pain Skin: States: no symptoms reported. Denies: change in color, change in hair/nails, dryness, lesions Neurological: States: no symptoms reported. Denies: anxiety, depressed, emotional problems, headache, numbness, paresthesia, pre-existing deficit, seizure, tingling, tremors, weakness Endocrine: States: no symptoms reported. Denies: excessive sweating, flushing, intolerance to cold, intolerance to heat, increased hunger, increased thirst, increased urine, unexplained weight gain, unexplained weight loss Hematologic/Lymphatic: States: no symptoms reported. Denies: anemia, blood clots, easy bleeding, easy bruising, swollen glands Past Medical History (General) - Patient Medical History Hx Seizures: No Hx Stroke: No Hx Dementia: No Hx Asthma: Yes Hx of COPD: Yes Hx Cardiac Disorders: Yes - elevated cholesterol Hx Congestive Heart Failure: No Hx Pacemaker: No Hx Hypertension: Yes Hx Thyroid Disease: No Hx Diabetes: No Hx Gastroesophageal Reflux: No Hx Renal Disease: No Hx Cancer: - skin cancers removed Hx of HIV: No Hx Hepatitis C: No Hx MRSA: No - Vaccination History Hx Tetanus, Diphtheria Vaccination: No Hx Influenza Vaccination: No - 2013 Hx Pneumococcal Vaccination: Yes - 2014 - Social History Hx Tobacco Use: Yes Hx Chewing Tobacco Use: No Hx Alcohol Use: No Hx Substance Use: No Hx Depression: Yes Hx Physical Abuse: No Hx Emotional Abuse: No Family Medical History - Family History Mother Living Status: Age at (years of age): 83 Cause of : alzheimers Hx Family Hypertension: Yes Hx Family Diabetes: Yes Physical Exam - Physical Exam General Appearance: Alert, Well Developed, Well Groomed, Well Hydrated Ears, Nose, Throat: normal ENT inspection Neck: non-tender, full range of motion, supple, normal inspection Respiratory: chest non-tender, lungs clear, normal breath sounds, no respiratory distress, no accessory muscle use Cardiovascular/Chest: normal peripheral pulses, regular rate, rhythm, no edema, no gallop, no JVD, no murmur Peripheral Pulses: radial,right: 2+, radial,left: 2+ Gastrointestinal/Abdominal: normal bowel sounds, non tender, soft, no organomegaly, no pulsatile mass Back Exam: normal inspection Extremity: normal range of motion, non-tender, normal inspection Neurologic: 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 patient doesn't look in any distress and is non toxic looking \ im going to order cbc,cmp urine and tsh 03/31/19 02:37 patient cbc was within normal limits, low potassium and since patient is not vomiting i replaced it with po K, paitent is alert and stabkle and no evidence of urinary tract infection. patient will be discharge home with follow up with primary md 03/31/19 02:39 i doubt a cerebrovascular accident, since patient clearly has no neurological deficits Departure - Departure Clinical Impression: Hypokalemia, Sensation of feeling hot Disposition: Discharge to Home or Self Care Condition: Fair Departure Forms: ED Discharge - Pt. Copy, Patient Portal Self Enrollment Instructions: Hypokalemia (DC) Referrals: RAMU PETTY IV, DIRECTOR OF PROMOTIONS [Primary Care Provider] - 1-2 Weeks Home Medications: Ambulatory Orders Folic Acid 1 tab PO BID 10/08/12 Furosemide [Lasix] 40 mg PO TIERRA-OTH-DAY 10/08/12 Rosuvastatin Calcium [Crestor] 10 mg PO AM 10/08/12 Spironolactone 25 mg PO AM 10/08/12 Losartan Potassium 100 mg PO DAILY #0 03/31/13 Sulfasalazine 2 tab PO BID #0 03/31/13 Cyclobenzaprine HCl [Flexeril] 10 mg PO TID PRN 02/09/16 Methotrexate Tab 15 mg PO MOTH 02/09/16 Potassium Chloride [Potassium Chloride ER] 20 meq PO BIDFD 02/09/16 Venlafaxine HCl [Effexor Xr] 150 mg PO DAILY 02/09/16 Aspirin [Brody Low Dose] 81 mg PO DAILY 11/05/17 Apremilast [Otezla] 30 mg PO BID 11/06/17 Etanercept [Enbrel] 25 mg SC WKLY 11/06/17 Albuterol Sulfate Nebs [Proventil Nebs] 2.5 mg INH Q4HR #30 vial 11/07/17 Methylprednisolone [Medrol Dose Idris] 4 mg PO DAILY 6 Days #21 tab 11/07/17 guaiFENesin ER TAB [Mucinex Tab] 600 mg PO BID tab 11/07/17
[2019-03-31 02:02] VITALS: TEMP 97.7; O2SAT 94
[2019-03-31] MEDS ORDERED: POTASSIUM CHLORIDE 20 MEQ TAB PO ONE (02:21)
[2019-03-31 03:04] VITALS: BP 131/75
== END 2019-03-31 03:07 | disposition home or self-care (01) ==
LOC: ER 01:25
DX: E87.6 Hypokalemia (principal); M06.9 Rheumatoid arthritis, unspecified; F17.200 Nicotine dependence, unspecified, uncomplicated; F32.9 Major depressive disorder, single episode, unspecified; I10 Essential (primary) hypertension; I51.9 Heart disease, unspecified; J44.9 Chronic obstructive pulmonary disease, unspecified; Z85.828 Personal history of other malignant neoplasm of skin; Z79.899 Other long term (current) drug therapy; Z79.82 Long term (current) use of aspirin; Z88.5 Allergy status to narcotic agent